=== PATIENT | male | born 1950 | race Caucasian/White ===

== ENCOUNTER → 2023-12-01 10:23 | Outpatient (REF) | payer OTHER, SELFPAY | LOC: MRI 3T 10:23 | PROVIDERS: ATTENDING PHYSICIAN Surgery; FAMILY PHYSICIAN Family Medicine | DX: R97.20 Elevated prostate specific antigen [PSA] (principal) | CPT/HCPCS: 72197; A9575 ==

== ENCOUNTER → 2024-05-24 12:33 | Outpatient (REF) | payer OTHER, SELFPAY | LOC: RCS 12:33 | PROVIDERS: ATTENDING PHYSICIAN Internal Medicine; FAMILY PHYSICIAN Emergency Medicine | DX: R55 Syncope and collapse (principal); I10 Essential (primary) hypertension | CPT/HCPCS: 93017 ==